=== PATIENT | female | born 1980 | race Caucasian/White ===

== ENCOUNTER 2017-02-04 11:44 | Outpatient (RCR) | payer OTHER | END 2017-02-14 | LOC: M CR 11:44 | DX: Z51.89 Encounter for other specified aftercare (principal); I42.1 Obstructive hypertrophic cardiomyopathy (principal) | CPT/HCPCS: 93798 ==

== ENCOUNTER 2017-02-16 09:22 | Outpatient (RCR) | payer OTHER | END 2017-03-17 | LOC: M CR 09:22 | DX: Z51.89 Encounter for other specified aftercare (principal); I42.1 Obstructive hypertrophic cardiomyopathy | CPT/HCPCS: 93798 ==

== ENCOUNTER 2017-03-18 09:44 | Outpatient (RCR) | payer OTHER | END 2017-04-14 | LOC: M CR 09:44 | DX: I42.1 Obstructive hypertrophic cardiomyopathy (principal) ==

== ENCOUNTER → 2020-01-04 | Outpatient (CLI) | payer MEDICARE, OTHER ==
[~2020-01-04] MED LIST: AVEL1TAB3 PO; CIPR-250 PO; DEXA2TA PO; HYDR-3715 PO; METO1TAB63 PO; NORT25CA2 PO; PANT40TA29 PO; PROAAER10 INH; PROHANCE 279.3MG/ML 15ML VIAL As Ordered ONE; TOPA100T12 PO; TOPA50TA8 PO; TOPR25TA PO; TYLE167L PO
--- NOTE | 2020-01-04 12:07 | REPVR ---
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 Contrast material: PROHANCE; Contrast volume: 10 ml; Contrast route: INTRAVENOUS (IV); COMPARISON: MRI-Brain W/O FOLL BY WITH 12/04/2014 1:22 PM FINDINGS: Brain: There are occasional nonspecific foci of high signal abnormality in the kirk radiata and centrum semiovale. These are best seen on the flair images. These foci may represent areas of gliosis, demyelination, and/or chronic ischemic change. Cerebral ventricles: See "Paranasal sinuses" finding. Bones/joints: There is evidence of prior right parietal craniotomy. There is encephalomalacia deep to the craniotomy site. There is question of mild vasogenic edema at the craniotomy site, slightly more pronounced than prior study, but there is no suspicious mass or abnormal enhancement. Paranasal sinuses: There is new opacification of the right sphenoid sinus. The possibility that this represents CSF in this patient with a CSF leak cannot be excluded. Mastoid air cells: Normal as visualized. No mastoid effusion. Orbits: Unremarkable. Soft tissues: Unremarkable. IMPRESSION: 1. There is evidence of prior right parietal craniotomy. There is encephalomalacia deep to the craniotomy site. There is question of mild vasogenic edema at the craniotomy site, slightly more pronounced than prior study, but there is no suspicious mass or abnormal enhancement. Followup imaging is recommended. 2. There is new opacification of the right sphenoid sinus. The possibility that this represents CSF in this patient with a CSF leak cannot be excluded. 3. There are occasional nonspecific foci of high signal abnormality in the kirk radiata and centrum semiovale. These are best seen on the flair images. These foci may represent areas of gliosis, demyelination, and/or chronic ischemic change. Electronically signed by: Marcus Betancourt On 01/04/2020 12:07:03 PM
== END ==
LOC: M RAD 10:47
PROVIDERS: ATTEND Physician Assistant Medical
DX: G93.89 Other specified disorders of brain (principal); G96.01 Cranial cerebrospinal fluid leak, spontaneous; D32.0 Benign neoplasm of cerebral meninges
CPT/HCPCS: 70553; A9576

== ENCOUNTER → 2022-02-10 | Outpatient (REF) | payer MEDICARE ==
[~2022-02-10] MED LIST changes: -PROHANCE 279.3MG/ML 15ML VIAL As Ordered ONE
[2022-02-10 18:07] LABS: APPEARANCE, URINE MANUAL CLEAR (CLEAR); BILIRUBIN, URINE MANUAL NEGATIVE (NEGATIVE); BLOOD URINE MANUAL POSITIVE (NEGATIVE); COLOR, URINE MANUAL LT YELLOW (YELLOW); GLUCOSE, URINE (UA) MANUAL NEGATIVE (NEGATIVE); KETONE, URINE MANUAL NEGATIVE (NEGATIVE); LEUKOCYTE ESTERASE, URINE MAN NEGATIVE (NEGATIVE); NITRITE, URINE MANUAL NEGATIVE (NEGATIVE); PROTEIN, URINE MANUAL NEGATIVE (NEGATIVE); SPECIFIC GRAVITY,URINE MANUAL 1.005 (1.002-1.035); UROBILINOGEN, URINE MANUAL NORMAL (NORMAL)
[2022-02-10 18:22] LABS: BACTERIA, URINE NONE SEEN; HYALINE CAST, URINE NONE SEEN /lpf (0-1); SQUAMOUS EPITHELIAL CELL URINE SMALL AMOUNT /hpf (SMALL AMT); WBC, URINE 0-1 /hpf (0-3)
== END ==
LOC: M SMT 16:59
PROVIDERS: ATTEND Urology
DX: R31.29 Other microscopic hematuria (principal)

== ENCOUNTER → 2023-11-15 | Outpatient (CLI) | payer MEDICARE | LOC: M EKG 14:08 | PROVIDERS: ATTEND Registered Nurse | DX: I48.0 Paroxysmal atrial fibrillation (principal); R06.02 Shortness of breath; I42.1 Obstructive hypertrophic cardiomyopathy; Z53.9 Procedure and treatment not carried out, unspecified reason ==

== ENCOUNTER → 2023-11-29 | Outpatient (CLI) | payer MEDICARE | LOC: M PLAIMG 14:27 | PROVIDERS: ATTEND Registered Nurse | DX: I42.1 Obstructive hypertrophic cardiomyopathy (principal); I50.32 Chronic diastolic (congestive) heart failure; R06.02 Shortness of breath; I08.3 Combined rheumatic disorders of mitral, aortic and tricuspid valves ==